=== PATIENT | male | born 2000 | race Two or more races ===

== ENCOUNTER 2019-01-08 19:43 | Emergency (ER) | payer OTHER ==
[~2019-01-08] VITALS: Ht 175.3 cm; Wt 82.1 kg
[2019-01-08] MEDS ORDERED: DIPH,PERTUSS(ACELL),TET VAC/PF 0.5 ML IM-VACC ONE ×2 (20:00→20:36)
[2019-01-08] MEDS ORDERED: L.E.T SOLUTION TP ONE ×2 (20:00→20:37)
--- NOTE | 2019-01-08 20:09 | NUR ---
pt to room from lobby
[2019-01-08] MEDS ORDERED: SODIUM CHLORIDE FLUSH 10ML SYR IVF ONE ×2 (21:00)
[2019-01-08 21:06] LABS: BASOPHILS # (AUTO) 0.05 x10^3/uL (0-0.3); BASOPHILS % (AUTO) 0 % (0-1); EOSINOPHILS % (AUTO) 0 % (1-7); LYMPHOCYTES # (AUTO) 1.37 x10^3/uL (1-6.1); LYMPHOCYTES % (AUTO) 10 % (22-44); MD NO; MEAN CORPUSCULAR HEMOGLOBIN 30.8 pg (27.5-34.5); MEAN CORPUSCULAR HGB CONC 34.1 g/dL (33.2-36.2); MEAN CORPUSCULAR VOLUME 90.3 fL (81-97); MEAN PLATELET VOLUME 7.2 fL (7.4-10.4); MONOCYTES # (AUTO) 0.85 x10^3/uL (0-1.4); MONOCYTES % (AUTO) 7 % (2-9); NEUTROPHILS # (AUTO) 10.92 x10^3/uL (1.8-8.0); NEUTROPHILS % (AUTO) 83 % (42-75); PLATELET COUNT 367 x10^3/uL (130-400); RED BLOOD COUNT 5.33 x10^6/uL (4.38-5.82); RED CELL DISTRIBUTION WIDTH 12.5 % (9.4-14.8)
[2019-01-08 21:16] LABS: ALBUMIN 4.4 g/dL (3.4-5.0); ANION GAP 6 mmol/L (5-15); CALCIUM 9.6 mg/dL (8.5-10.1); CHLORIDE 108 mmol/L (98-107)
[2019-01-08 21:19] LABS: ALANINE AMINOTRANSFERASE 28 U/L (12-78); ALKALINE PHOSPHATASE 78 U/L (45-117); BILIRUBIN,TOTAL 0.5 mg/dL (0.2-1.0); CREATININE 0.95 mg/dL (0.7-1.3); TOTAL PROTEIN 8.2 g/dL (6.4-8.2)
[2019-01-08] MEDS ORDERED: OMNIPAQUE 350 MG/ML, 100ML BOTTLE ONE (21:54)
--- NOTE | 2019-01-08 22:20 | NUR ---
RECEIVED BEDSIDE REPORT AND CARE FROM JORGE GARCIA. CARE ASSUMED AT THIS TIME. AMADOU CORNEJO AT BEDSIDE DISCUSSING DISCHARGE POC, AWAITING CHART AND DISCHARGE PAPERS. DRESSING CDI TO WOUNDS. A&OX4. NO UA TO BE COLLECTED PER AMADOU CORNEJO, PT CLEARED FOR DISCHARGE. CALL LIGHT IN REACH. FALL PRECUATIONS IN PLACE. SIDE RAILS UPX2. FRIENDS AT BEDSIDE
--- NOTE | 2019-01-08 22:30 | NUR ---
DISCUSSED ADACEL (TETANUS) AND LET ORDERS WITH AMADOU CORNEJO, PER AMADOU CORNEJO "PT STATED HE RECEIVED HIS LAST TETANUS IN THE SUMMER OF 2017 SO WE WILL NOT ADMINISTER IT AND THE LET WAS NO REQUIRED FOR HIS ABRASION, NEITHER NEED TO BE GIVEN, HE IS READY FOR DISCHARGE." PT TO BE DISCHARGED, PT AND FRIENDS GIVEN DISCHARGE INSTRUCTIONS, VERBALIZED UNDERSTANDING, HANDOUTS AND RX IN HAND. AMBULATED TO D/C DESK WITH STEADY GAIT. A&OX4 AT DISCHARGE. VSS.
[2019-01-08 22:32] VITALS: BP 129/65
== END 2019-01-08 22:46 | disposition home or self-care (01) ==
LOC: ED 22:40
DX: S06.0X9A Concussion with loss of consciousness of unspecified duration, initial encounter (principal); S16.1XXA Strain of muscle, fascia and tendon at neck level, initial encounter; S30.811A Abrasion of abdominal wall, initial encounter; V00.131A Fall from skateboard, initial encounter; Y93.51 Activity, roller skating (inline) and skateboarding; Y92.410 Unspecified street and highway as the place of occurrence of the external cause; Y99.8 Other external cause status
CPT/HCPCS: 36415; 70450; 71045; 72125; 74177; 80053; 85025; 99284; Q9967

== ENCOUNTER 2019-07-26 07:08 | Emergency (ER) | payer MEDICAID ==
[~2019-07-26] VITALS: Ht 175.3 cm; Wt 84.0 kg
[2019-07-26 07:26] VITALS: BP 117/77
[2019-07-26 07:39] LABS: BASOPHILS # (AUTO) 0.04 x10^3/uL (0-0.3); BASOPHILS % (AUTO) 1 % (0-1); EOSINOPHILS # (AUTO) 0.09 x10^3/uL (0-0.8); EOSINOPHILS % (AUTO) 1 % (1-7); LYMPHOCYTES % (AUTO) 37 % (22-44); MD NO; MEAN CORPUSCULAR HEMOGLOBIN 30.4 pg (27.5-34.5); MEAN CORPUSCULAR HGB CONC 33.3 g/dL (33.2-36.2); MEAN CORPUSCULAR VOLUME 91.3 fL (81-97); MEAN PLATELET VOLUME 7.4 fL (7.4-10.4); MONOCYTES # (AUTO) 0.55 x10^3/uL (0-1.4); MONOCYTES % (AUTO) 8 % (2-9); NEUTROPHILS # (AUTO) 3.92 x10^3/uL (1.8-8.0); NEUTROPHILS % (AUTO) 54 % (42-75); PLATELET COUNT 328 x10^3/uL (130-400); RED BLOOD COUNT 5.39 x10^6/uL (4.38-5.82); RED CELL DISTRIBUTION WIDTH 12.3 % (9.4-14.8)
--- NOTE | 2019-07-26 07:39 | NUR ---
ON ARRIVAL TO ROOM SUPPLIES AND EQUIPMENT SECURED BEHIND PULLDOWN DOORS. PT IN IMMEDIATE VIEW OF SITTER. BELONGINGS REMOVED AND PUT IN LOCKER
[2019-07-26 07:52] LABS: ALANINE AMINOTRANSFERASE 34 U/L (12-78); ALBUMIN 4.6 g/dL (3.4-5.0); ANION GAP 9 mmol/L (5-15); CHLORIDE 113 mmol/L (98-107); CREATININE 0.99 mg/dL (0.7-1.3)
[2019-07-26 07:54] LABS: SALICYLATE LEVEL < 1.7 mg/dL (2.8-20.0)
[2019-07-26 07:55] LABS: ALKALINE PHOSPHATASE 73 U/L (45-117); BILIRUBIN,TOTAL 0.4 mg/dL (0.2-1.0); TOTAL PROTEIN 8.3 g/dL (6.4-8.2)
[2019-07-26 07:56] LABS: AMPHETAMINE SCREEN, URINE Negative (Negative); BARBITURATE SCREEN, URINE Negative (Negative); BENZODIAZEPINE SCREEN, URINE Negative (Negative); CANNABINOID SCREEN, URINE Negative (Negative); METHADONE SCREEN, URINE Negative (Negative); OPIATE SCREEN, URINE Negative (Negative)
--- NOTE | 2019-07-26 08:03 | NUR ---
Throughput RN note: Gabrielle DewittCatering Convention Services Manager at [facility] and Dorie at bed control at [facility]. Both facilities decline the patient at this time.
[2019-07-26 08:11] LABS: COCAINE SCREEN, URINE Negative (Negative)
--- NOTE | 2019-07-26 08:24 | NUR ---
Throughput RN note: Olena at [facility] contacted to evaluate pt for admission.
--- NOTE | 2019-07-26 08:38 | NUR ---
Throughput RN note: Massimo from [facility] called to decline pt.
--- NOTE | 2019-07-26 08:45 | NUR ---
pt provided breakfast but sleeping and not rousing enough to eat
--- NOTE | 2019-07-26 10:05 | NUR ---
breathalyzer completed by Tanisha GARCIA.
--- NOTE | 2019-07-26 11:00 | NUR ---
RESTING WITH EYES CLOSED
--- NOTE | 2019-07-26 12:00 | NUR ---
provided lunch. vistors at bedside. pt quite, cooperative
--- NOTE | 2019-07-26 13:00 | NUR ---
LYING IN [place] QUIETLY
--- NOTE | 2019-07-26 14:00 | NUR ---
VISITORS AT BEDSIDE
--- NOTE | 2019-07-26 14:30 | NUR ---
PT'S CELL PHONE AND [employer] ARCHITECT TAKEN FROM ROOM AND PLACED IN PT'S BELONGING BAG THAT IS SECURED IN LOCKER. MULTIPLE VISTORS. VISTORS ASKED TO LEAVE AND NO FURTHER BELONGINGS LEFT BY VISITORS.
--- NOTE | 2019-07-26 14:55 | NUR ---
Throughput RN note: Pt's packet faxed to [facility], [facility], and [facility].
--- NOTE | 2019-07-26 15:26 | NUR ---
Throughput RN note: Dr. Joshi at [facility] accepts the pt.
--- NOTE | 2019-07-26 16:15 | NUR ---
REPORT TO YONATAN GARCIA. PT TO BE TRANSPORTED TO FLOOR
== END 2019-07-26 19:40 ==
LOC: ED 07:18
DX: F33.9 Major depressive disorder, recurrent, unspecified (principal); R45.851 Suicidal ideations; F10.220 Alcohol dependence with intoxication, uncomplicated; Y90.9 Presence of alcohol in blood, level not specified
CPT/HCPCS: 36415; 80053; 80307; 85025; 99285